=== PATIENT | male | born 1950 | race Caucasian/White ===

== ENCOUNTER 2018-10-28 10:04 | Emergency (ER) | payer OTHER ==
[~2018-10-28] VITALS: Ht 180.3 cm; Wt 122.5 kg
[2018-10-28] MEDS ORDERED: TOPROL XL25 M1 (10:18)
[2018-10-28] MEDS ORDERED: BENICAR5 MG (10:18)
[2018-10-28] MEDS ORDERED: ASA81 MG (10:19)
[2018-10-28] MEDS ORDERED: CRESTOR5 MG (10:19)
[2018-10-28] MEDS ORDERED: PLAVIX75 MG (10:19)
[2018-10-28] MEDS ORDERED: MULTI VITAMIN1 EACH (10:20)
[2018-10-28] MEDS ORDERED: [UNRECOGNIZED DRUG - OTHER] (10:20)
[2018-10-28] MEDS ORDERED: FLECTOR1 EACH TD (14:04)
[2018-10-28] MEDS ORDERED: PERCOCET 5-3251 EACH PO (14:04)
== END 2018-10-28 19:27 | disposition home or self-care (01) ==
LOC: ER 10:04
DX: S30.0XXA Contusion of lower back and pelvis, initial encounter (principal); S93.402A Sprain of unspecified ligament of left ankle, initial encounter; W18.09XA Striking against other object with subsequent fall, initial encounter; Y93.89 Activity, other specified; Y92.89 Other specified places as the place of occurrence of the external cause; Y99.8 Other external cause status

== ENCOUNTER 2018-10-30 21:37 | Emergency (ER) | payer OTHER ==
[~2018-10-30] VITALS: Ht 180.3 cm; Wt 122.5 kg
[~2018-10-30 21:37] MED LIST: ASA81 MG; BENICAR5 MG; CRESTOR5 MG; FLECTOR1 EACH TD; MULTI VITAMIN1 EACH; PERCOCET 5-3251 EACH PO; PLAVIX75 MG; TOPROL XL25 M1; [UNRECOGNIZED DRUG - OTHER]
== END 2018-10-31 00:06 | disposition home or self-care (01) ==
LOC: ER 21:37
DX: M54.5 Low back pain (principal); M62.830 Muscle spasm of back; S30.0XXD Contusion of lower back and pelvis, subsequent encounter; W18.09XD Striking against other object with subsequent fall, subsequent encounter